=== PATIENT | male | born 1960 | race African-American/Black ===

== ENCOUNTER 2020-08-24 19:53 | Inpatient (IN) | payer OTHER ==
[2020-08-24 21:45] LABS: SARS-CoV-2 NAA Rapid Test Not Detected (NotDetected)
[2020-08-24] MEDS ORDERED: Nitroglycerin 0.4 MG TAB (25 Tab Bottle) SL PRN (21:46)
--- NOTE | 2020-08-24 21:57 | PDOC.BPN ---
- Brief Progress Note [id number] HP dictated
[2020-08-24 22:01] LABS: CKMB 3.8 ng/mL (0-6.6)
[2020-08-24] MEDS ORDERED: Potassium Chloride 20 MEQ TAB PO SCH (22:15)
[2020-08-24] MEDS ORDERED: Aspirin 325 MG TAB PO SCH (22:15)
[2020-08-24] MEDS ORDERED: niCARdipine 20MG In NaCl 20 MG/200 ML BAG ONE (23:36)
[2020-08-24] MEDS ORDERED: niCARdipine 25 MG in Sodium Chloride 0.9% 250 ML 240 ML IVPB SCH (23:45)
[2020-08-24 23:59] VITALS: BMI 27.0
[2020-08-25 01:07] LABS: Troponin I 0.122 ng/mL (< 0.028)
[2020-08-25] MEDS ORDERED: Enoxaparin Sodium 100 MG/ML SYRINGE ONE (01:09)
--- NOTE | 2020-08-25 03:24 | HP ---
CHIEF COMPLAINT: Chest pain. HISTORY OF PRESENT ILLNESS: Mr. Mcnair is a 60-year-old male with past medical history of hypertension, substance abuse, schizophrenia, is being transferred from [facility] after he presented there with chest pain around 3:00 a.m. The patient was using cocaine last night. Chest pain was substernal. Also, he had abdominal pain. Also, he had nausea and vomiting and shortness of breath. He has been coughing for the last few days. He had subjective fever for a few days. He ran out of his blood pressure medications a few days ago. In the emergency room, his blood pressure was 240/120. The patient was started on Cardene drip. He is feeling better. Chest pain almost resolved. Also, abdominal pain is improving. His initial troponin is 0.108, repeat troponin 0.114. The patient had a CT of the chest which showed no evidence of aortic dissection or aneurysm. No evidence of pulmonary embolism. Lungs were clear. The patient was transferred to our medical facility for further management. The patient was given aspirin in the emergency room and one dose of Lovenox. The patient is being admitted to hospital for further management. PAST MEDICAL HISTORY: As mentioned above in the history of present illness. PAST SURGICAL HISTORY: None reported. SOCIAL HISTORY: Substance abuse. FAMILY HISTORY: Reviewed and noncontributory. ALLERGIES: NO KNOWN ALLERGIES. HOME MEDICATIONS: Currently none. REVIEW OF SYSTEMS: Review of 14 systems negative except what is mentioned in history of present illness. PHYSICAL EXAMINATION: GENERAL: The patient is awake, alert, does not appear to be in acute distress. VITAL SIGNS: Pulse is 102, blood pressure 160/90, respiratory rate is 17, oxygen saturation is 97% on room air. HEAD AND NECK: Normocephalic, atraumatic. NECK: Supple. No JVD. CHEST: Fair bilateral air entry. HEART: S1, S2. Regular. ABDOMEN: Soft, nontender. Bowel sounds present. NEUROLOGIC: Awake, alert, moving extremities. PSYCH: Unable to assess. EXTREMITIES: No clubbing or cyanosis. LABORATORY DATA: WBC 10, hemoglobin 15.8, platelets 247. Sodium 140, potassium 3.4, BUN 14, creatinine 1.2. Initial troponin 0.108, repeat troponin 0.114. EKG showed sinus rhythm with infrequent PVCs, nonspecific ST changes. ASSESSMENT: 1. Hypertensive emergency. 2. [id number]-GK-tnspupbix myocardial infarction/acute coronary syndrome. 3. Substance/cocaine abuse. 4. Hypokalemia. PLAN: 1. Admit. 2. Continue with Cardene drip for now. 3. Continue to trend troponin. 4. Aspirin. 5. The patient was given one dose of Lovenox in the emergency room, reassess in a.m. 6. Consult Cardiology in a.m. for evaluation and further recommendations. 7. Reconcile home medications. 8. DVT prophylaxis as appropriate. 9. Expected length of stay, 2 midnights or more. Job ID: [id number]
[2020-08-25 04:12] LABS: Cardiac Risk 3.6 (Less than 4.5)
[2020-08-25] MEDS ORDERED: Haloperidol Lactate 5 MG/ML VIAL ONE (08:55)
[2020-08-25] MEDS ORDERED: Metoprolol Tartrate 25 MG TAB PO SCH (09:00)
[2020-08-25] MEDS ORDERED: Prevnar 13-Val Conj/PF 0.5 ML SYRINGE IM ONE (09:00)
[2020-08-25] MEDS ORDERED: FLU VACC QS2020-21(6MOS UP)/PF 60 MCG/0.5 ML SYRINGE IM ONE (09:00)
[2020-08-25] MEDS ORDERED: Aspirin 325 mg Enteric Coated Tablet PO SCH (09:00)
[2020-08-25] MEDS ORDERED: niCARdipine 25 MG in Sodium Chloride 0.9% 250 ML 240 ML IVPB SCH (09:30)
[2020-08-25] MEDS ORDERED: Haloperidol Lactate 5 MG/ML VIAL IM SCH (09:30)
[2020-08-25] MEDS ORDERED: Lorazepam 2 MG/ML VIAL SLOW IVP PRN (09:52)
[2020-08-25] MEDS ORDERED: Amlodipine 10 MG TAB PO SCH (10:00)
[2020-08-25] MEDS ORDERED: Lorazepam 2 MG/ML VIAL SLOW IVP SCH (10:00)
[2020-08-25] MEDS ORDERED: Hydrochlorothiazide 25 MG TAB PO SCH (14:30)
--- NOTE | 2020-08-25 17:49 | PDOC.HOSPP ---
- Subjective Encounter Date: 08/25/20 Encounter Time: 10:00 Subjective: Patient was seen and examined in bed. Patient was agitated and was threatening to leave AMA. He was generally confused and was generally incoherent. We convinced him to stay and eventually he did. He denied any chest pain or shortness of breath or abdominal pain although he was generally confused - Objective Vital Signs & Weight: Vital Signs (12 hours) Temp Pulse Resp BP BP Pulse Ox 08/25/20 16:38 98.5 F 69 16 142/85 H 96 08/25/20 13:00 98.7 F 08/25/20 11:01 98 115/62 08/25/20 07:13 100 08/25/20 07:00 98.7 F Weight Weight 172 lb 6.424 oz Most Recent Monitor Data Heart Rate from ECG 86 NIBP 123/86 NIBP BP-Mean 98 Respiration from ECG 17 SpO2 92 I&O: 08/24/20 08/25/20 08/26/20 06:59 06:59 06:59 Intake Total 466 0 Balance 466 0 Hospitalist ROS - Medication Medications: Active Medications Generic Name Dose Route Start Last Admin Trade Name Freq PRN Reason Stop Dose Admin Aspirin 325 mg 08/25/20 09:00 08/25/20 09:00 Aspirin 325 Mg Enteric Coated Tablet PO 325 mg DAILY PAUL Administration - Exam General - other findings: Awake and alert. Incoherent, looks disheveled Heart: RRR, no murmur, no gallops Respiratory: CTAB, no rales Gastrointestinal: soft, non-tender, non-distended Extremities: no cyanosis, no clubbing, no edema Neurological: cranial nerve grossly intact, no weakness, no focal deficits Musculoskeletal: normal tone Psychiatric: normal affect, normal behavior, A&O x 3 Hosp A/P - Plan This is a 60-year-old male patient with a history of substance abuse, schizophrenia was transferred from [facility] on account of chest pain in the setting of cocaine use. Noted to have hypertensive emergency at presentation Hypertensive emergency Systolic blood pressures above 220s as presented with associated elevated troponin. In ICU on nicardipine drip with normalization of blood pressures. We will start on amlodipine and HCTZ wean off nicardipine drip Transfer to 2 W once stable. NSTEMI Likely secondary to cocaine abuse Was started on aspirin and nitroglycerin. Was started on Lovenoxwe will continue Cardiology consultedappreciate input History of schizophrenia No account of his previous medications. He was given Haldol due to agitation and later lorazepam Will start him on olanzapine He will have to follow-up with psych post discharge. Substance abuse Melia counseling on further psych management. VT prophylaxisLovenox CODE STATUSfull
[2020-08-25] MEDS ORDERED: Electrolyte Replacement Protocol 1 EACH FS SCH (18:00)
[2020-08-25 18:18] LABS: #Basophils 0.1 thou/uL (0.0-0.2); #Eosinphils 0.1 thou/uL (0.0-0.7); #Lymphocytes 2.6 thou/uL (1.20-3.40); #Monocytes 0.6 thou/uL (0.11-0.59); #Neutrophils 4.3 thou/uL (1.40-6.50); %Basophils 0.9 % (0.0-1.0); %Eosinophils 1.2 % (0.0-10.0); %Monocytes 8.2 % (0.0-10.0); %Neutrophils 55.7 % (42.0-75.0); Hemoglobin 14.7 g/dL (14.0-18.0); Mean Corpuscular HGB CONC 31.8 g/dL (32.0-36.0); Mean Corpuscular Hemoglobin 28.5 pg (27.0-31.0); Mean Corpuscular Volume 89.7 fL (78.0-98.0); Mean Platelet Volume 7.7 fL (7.4-10.4); Platelet Count 279 thou/uL (130-400); RBC Distribution Width 13.7 % (11.5-14.5); Red Blood Cell (RBC) Count 5.15 mill/uL (4.70-6.10); White Blood Cell (WBC) Count 7.7 thou/uL (4.8-10.8)
--- NOTE | 2020-08-25 18:56 | CON ---
DATE OF CONSULTATION: SUBJECTIVE: Mr. Mcnair is a 60-year-old male who presented with chest discomfort after using cocaine. He also had abdominal pain, nausea, vomiting, and shortness of breath. He is extremely hypertensive. He subsequently has been admitted after CT angiography showed no dissection and no evidence of pulmonary emboli. PAST MEDICAL HISTORY: Otherwise unremarkable except for hypertension and schizophrenia. He admits to using cocaine. FAMILY HISTORY: Negative for lung disease in early age. REVIEW OF SYSTEMS: Otherwise negative. PHYSICAL EXAMINATION: VITAL SIGNS: Blood pressure 177/74, heart rate 75, respiratory rates in the teens. HEENT: Head and neck exam is unremarkable. LUNGS: Clear. HEART: Regular rhythm. ABDOMEN: Soft and nontender. EXTREMITIES: Without asymmetry. His COVID screen is negative. IMPRESSION: Symptoms all related to cocaine use. Once his blood pressure is documented under control, he could be discharged home unless something else comes up. He appears comfortable at this time. He could be moved out of the Critical Care Unit. I do not feel he needs to continue with anticoagulation. Job ID: [id number]
[2020-08-25] MEDS ORDERED: Enoxaparin Sodium 80 MG/0.8 ML SYRINGE SC SCH (21:00)
[2020-08-26 03:55] VITALS: BP 157/83; TEMP 98.2
[2020-08-26 04:58] LABS: Anion Gap 14 mmol/L (10-20); BUN (Urea Nitrogen) 20 mg/dL (8.4-25.7); Calc. Creatinine Clearance 61 mL/min (70-130); Calcium 9.1 mg/dL (7.8-10.44); Carbon Dioxide 27 mmol/L (22-29); Chloride 100 mmol/L (98-107); Glucose 96 mg/dL (70-105); Potassium 3.8 mmol/L (3.5-5.1); Sodium 137 mmol/L (136-145)
[2020-08-26] MEDS ORDERED: Aspirin 81 mg Enteric Coated Tablet PO SCH (09:00)
[2020-08-26] MEDS ORDERED: Amlodipine 10 MG TAB PO SCH (09:00)
[2020-08-26] MEDS ORDERED: Hydrochlorothiazide 25 MG TAB PO SCH (09:00)
--- NOTE | 2020-08-26 13:54 | PDOC.HOSPP ---
- Subjective Encounter Date: 08/26/20 Encounter Time: 11:00 Subjective: Patient was not seen today. Before I came in to see him he had left AMA. He was admitted for hypertensive emergency and currently out of the CCU. - Objective Vital Signs & Weight: Vital Signs (12 hours) Temp Pulse Resp BP Pulse Ox 08/26/20 08:00 95 08/26/20 03:54 98.2 F 72 18 157/83 H 95 Weight Weight 176 lb 8 oz Most Recent Monitor Data Heart Rate from ECG 86 NIBP 123/86 NIBP BP-Mean 98 Respiration from ECG 17 SpO2 92 I&O: 08/25/20 08/26/20 08/27/20 06:59 06:59 06:59 Intake Total 466 1860 Output Total 0 Balance 466 1860 Result Diagrams: 08/25/20 18:04 08/26/20 04:18 Hosp A/P - Plan This is a 60-year-old male patient with a history of substance abuse, schizophrenia was transferred from [facility] on account of chest pain in the setting of cocaine use. Noted to have hypertensive emergency at presentation Hypertensive emergency Systolic blood pressures above 220s as presented with associated elevated troponin. In ICU on nicardipine drip with normalization of blood pressures. We will start on amlodipine and HCTZ wean off nicardipine drip Transfer to 2 W once stable. NSTEMI Likely secondary to cocaine abuse Was started on aspirin and nitroglycerin. Was started on Lovenoxwe will continue Cardiology consultedappreciate input History of schizophrenia No account of his previous medications. He was given Haldol due to agitation and later lorazepam Will start him on olanzapine He will have to follow-up with psych post discharge. Substance abuse Melia counseling on further psych management. VT prophylaxisLovenox CODE STATUSfull
--- NOTE | 2020-08-26 13:56 | PDOC.DS.DS ---
Provider - Provider Date of Admission: 08/24/20 21:10 Date of Discharge: 08/26/20 Admitting Provider: Matt Estevez MD Primary Care Physician: NO PCP PROVIDER Course - Hospital Course Hospital Course: Patient was not seen and examined today. He was admitted on account of hypertensive emergency and was admitted to CCU and transferred out day ago. Today before evaluating her left AMA. - Labs Lab Results: 08/25/20 18:04 08/26/20 04:18 Abnormal Lab Results - Last 48 hrs 08/24/20 21:08: Troponin I 0.114 H 08/24/20 23:38: Troponin I 0.122 H 08/25/20 18:04: MCHC 31.8 L, Monocytes # 0.6 H 08/26/20 04:18: Creatinine 1.44 H - Physical Exam Vitals: Vital Signs (12 hours) Temp Pulse Resp BP Pulse Ox 08/26/20 08:00 95 08/26/20 03:54 98.2 F 72 18 157/83 H 95 Weight Weight 176 lb 8 oz Most Recent Monitor Data Heart Rate from ECG 86 NIBP 123/86 NIBP BP-Mean 98 Respiration from ECG 17 SpO2 92 Physical Exam: The patient was seen and examined on the day of discharge. Problem - Discharge Plan Assessment: Hypertensive emergency Initial mild CCU on Emeka espitia Currently discharged AMA Cocaine abuse Plan - Discharge Medications Home Medications: Medication Instructions Recorded Confirmed Type No Known 08/25/20 08/25/20 History Allergies: No Known Drug Allergies Allergy (Verified 08/25/20 00:02) - Follow up Plan Referrals: Cardiac Rehab - [place] [Outside] - 7 Days (Your doctor has ordered outpatient cardiac rehab for you to begin within 1-2 weeks after you go home from the hospital. The location nearest to you is the [facility] [facility]. The front office in [place] will call you in 3-5 days to get you scheduled for your evaluation. If you do not receive a call, please reach out to them at [phone] and request an appointment. Should you have any trouble or need assistance, please call the cardiac rehab main line in [place] at [phone]) PROVIDER,NO PCP [Primary Care Provider] - Disposition: LEFT AGAINST MEDICAL ADVICE Quality - Care Measures CORE MEASURES:: N/A
== END 2020-08-26 08:50 | disposition left against medical advice (07) | DRG 917 ==
LOC: ERS 19:53 → CCU 21:10 → 2NO 08-25 16:40
PROVIDERS: ADMIT Internal Medicine; ATTEND Internal Medicine
DX: T40.5X1A Poisoning by cocaine, accidental (unintentional), initial encounter (principal); I21.4 Non-ST elevation (NSTEMI) myocardial infarction; I16.1 Hypertensive emergency; F20.9 Schizophrenia, unspecified; I10 Essential (primary) hypertension; E87.6 Hypokalemia; F14.10 Cocaine abuse, uncomplicated; Z53.29 Procedure and treatment not carried out because of patient's decision for other reasons; Y92.9 Unspecified place or not applicable; Z20.828 Contact with and (suspected) exposure to other viral communicable diseases
CPT/HCPCS: 36415; 80048; 80061; 82553; 85025; 93005; J1630; J1650; J2060; J7050; U0002